=== PATIENT | female | born 1965 | race Caucasian/White ===

== ENCOUNTER 2018-04-09 10:04 | Outpatient (CLI) | payer OTHER, SELFPAY ==
[2018-04-09 13:31] LABS: TSH (W/Ref FT4) 2.01 uIU/mL (0.358-3.74)
[2018-04-12 10:04] LABS: FSH 23.9 mIU/ml
== END 2018-04-09 10:24 ==
PROVIDERS: PCP Family Medicine; Visit Provider Nurse Practitioner Women's Health
DX: R61 Generalized hyperhidrosis (principal); E04.9 Nontoxic goiter, unspecified
CPT/HCPCS: 36415; 83001; 84443

== ENCOUNTER 2019-11-23 09:48 | Outpatient (REF) | payer OTHER, SELFPAY ==
--- NOTE | 2019-11-23 09:15 | PAPFT_PTH ---
PATIENT: Rosa Maria Toussaint LOC: [facility] U#:[id number] AGE/SX: 54/F ROOM: RE11/23/[address]: Keyla Meyers NP : 1965 BED: DIS: 11/23/2019 SPEC #: [id number] RECD: 11/23/19 12:57 STATUS: GAL DEGROOT #: [id number] XIOMARA: 11/23/19 09:[address]: Keyla Meyers NP DEPT: [facility] Cytology RECD BY: Parvin Castrejon ENTERED: 11/23/19 12:58 SP TYPE: PAPFT OTHR DR: Cierra Esquivel Tissues: 1 - CX/ENDOCX FOR PAP SMEARS Procedures: PAP THIN PREP/UVM Screening HPV DNA PROBE Comments: [id number]
== END 2019-11-23 10:08 ==
LOC: LBN 09:48
PROVIDERS: PCP Family Medicine; Visit Provider Nurse Practitioner Women's Health
DX: Z11.51 Encounter for screening for human papillomavirus (HPV) (principal)
CPT/HCPCS: 88142; 87624

== ENCOUNTER 2019-12-27 00:56 | Outpatient (CLI) | payer OTHER, SELFPAY ==
--- NOTE | 2019-12-27 07:45 | DI.US_ITS ---
EXAM: US PELVIS TRANSVAGINAL CLINICAL HISTORY: IUD surveillence, no strings on exam, Z30.431. TECHNIQUE: Transabdominal and transvaginal pelvic ultrasound was performed using standard protocol. COMPARISON: US PELVIS TRANSVAG from 08/23/2013 FINDINGS: KIDNEYS: Kidneys are symmetric in size. No evidence of renal calculi. No evidence of hydronephrosis. No renal mass or cyst identified. UTERUS: Position: Anteverted. Size: 10.9 long by 5.1 AP by 5.0 transverse cm Endometrium: 0.2 cm. Normal for patient's menstrual status. There is an IUD in good position. Myometrium: There is a 4.1 x 3.3 x 4.6 cm hypoechoic mass arising from the posterior body of the uter us suspicious for a fibroid. Cervix: Unremarkable. OVARIES: Right: 2.2 x 1.3 x 1.2 cm Cyst or mass: None. Left: 2.6 x 1.4 x 1.5 cm Cyst or mass: None. CUL-DE-SAC: Free fluid: None. Other: None. IMPRESSION: 1. Normal sonographic appearance of the kidneys. 2. 4.6 cm hypoechoic mass arising from the posterior uterus suspicious for fibroids. 3. IUD in good position. 4. Unremarkable bilateral ovaries. DATA REPOSITORY:
== END 2019-12-27 01:16 ==
PROVIDERS: PCP Family Medicine; Visit Provider Nurse Practitioner Women's Health
DX: Z30.431 Encounter for routine checking of intrauterine contraceptive device (principal)
CPT/HCPCS: 76830; 76856

== ENCOUNTER 2020-01-20 02:32 | Outpatient (CLI) | payer OTHER, SELFPAY ==
[2020-01-20 10:40] LABS: HCT 45.6 % (36.0-46.0); HGB 14.5 g/dL (11.2-15.7); MCH 27.9 pg (27.0-33.0); MCHC 31.8 % (32.0-36.0); MCV 87.9 fL (80-95); MPV 10.7 fL (8.0-11.0); Platelet Count 256 10^3/uL (130-400); RBC 5.19 10^6/uL (3.93-5.22); RDW 13.6 % (11.7-14.6); RDW-SD 43.9 fL; WBC 8.38 10^3/uL (4.4-10.8)
[2020-01-20 11:17] LABS: HCG Qual (Urine) Negative
== END 2020-01-20 02:52 ==
PROVIDERS: PCP Family Medicine; Visit Provider Obstetrics & Gynecology
DX: Z30.432 Encounter for removal of intrauterine contraceptive device (principal); D25.9 Leiomyoma of uterus, unspecified; Z01.818 Encounter for other preprocedural examination; Z01.812 Encounter for preprocedural laboratory examination
CPT/HCPCS: 36415; 85027; 86850; 86900; 86901; 81025

== ENCOUNTER 2020-01-20 08:02 | Outpatient (CLI) | payer OTHER, SELFPAY ==
[2020-01-22 02:51] LABS: COVID-19 RT-PCR Result NEGATIVE (Negative)
== END 2020-01-20 08:22 ==
PROVIDERS: PCP Family Medicine; Visit Provider Obstetrics & Gynecology
DX: Z01.818 Encounter for other preprocedural examination (principal)
CPT/HCPCS: U0003

== ENCOUNTER 2020-01-25 07:50 | Day surgery (SDC) | payer OTHER, SELFPAY ==
[2020-01-25 08:13] VITALS: BP 128/83; PULSE 63; RESP 16; TEMP 36.9; O2SAT 99
[2020-01-25] MEDS: Lactated Ringers 1,000 ML 125 ML IV (09:36)
--- NOTE | 2020-01-25 09:59 | W.PM.OP ---
Date of service: 01/25/20 Time of Service: 09:59 Operative Note Operative Note DATE OF PROCEDURE: 01/25/20 PRE-OP DIAGNOSIS: Retained intrauterine device POST-OP DIAGNOSIS: same PROCEDURE: Hysteroscopy with removal of intrauterine device SURGEON: Marika Marin ANESTHESIA: MAC ESTIMATED BLOOD LOSS: 5 Patient was transported to: PACU Patient's condition: stable Indications: Retained intrauterine device Findings: Intrauterine device removed Procedure Description: Patient is a 54-year-old female with need for removal of Mirena intrauterine device. This was attempted in the office, however strings and device itself were not able to be visualized well removed. The risks, benefits, alternatives of hysteroscopy with removal of intrauterine device were explained to the patient in full informed consent was obtained. She was taken the operating suite with an IV running. She was placed in the dorsal supine position and anesthesia administered. She was then placed in the modified dorsal lithotomy position in yellowfin stirrups and prepped and draped in usual sterile fashion. Exam under anesthesia revealed a uterus that was midline and mobile. Weighted speculum placed in the posterior vaginal vault. Anterior lip of the cervix was grasped with a single-tooth tenaculum. Cervical loss dilated to the point that a 5 mm hysteroscope could be passed. Visualization of the endometrial cavity revealed intrauterine device present with strings folded into the superior direction. Remainder of the cavity appeared normal. Hysteroscope was removed. Packing forcep used to grasp the distal portion of the device and removed with ease. Single-tooth tenaculum and speculum removed. Cervix is hemostatic. Patient was returned dorsal supine position and woke from anesthesia with ease. She was taken recovery room in stable condition. Complications are none apparent.
[2020-01-25 10:42] VITALS: BP 118/74; PULSE 58; RESP 16; TEMP 36.5; O2SAT 97
== END 2020-01-25 11:14 | disposition home or self-care (01) ==
PROVIDERS: PCP Family Medicine; Visit Provider Obstetrics & Gynecology
PROC: 0UJD8ZZ Inspection of Uterus and Cervix, Via Natural or Artificial Opening Endoscopic (ICD-10-PCS; CPT 58555; principal; 2020-01-25 09:00)
PROC: (CPT 58562; 2020-01-25 09:00)
DX: Z30.432 Encounter for removal of intrauterine contraceptive device (principal)
CPT/HCPCS: 58562; J1100; J1885; J2405

== ENCOUNTER → 2022-03-11 03:03 | Outpatient (CLI) | payer OTHER, SELFPAY ==
--- NOTE | 2022-03-11 06:45 | DI.US_ITS ---
Exam(s) US PELVIS TRANSVAGINAL EXAM: US PELVIS TRANSVAGINAL CLINICAL HISTORY: f/u uterine fibroid, d25.9 TECHNIQUE: Ultrasound of the pelvis was performed both transabdominal and transvaginal. COMPARISON: US US PELVIS TRANSVAGINAL from 02/19/2021 FINDINGS: UTERUS: Anteverted Measures 7.6 cm length x 3.2 cm AP x 3.8 cm wide. Posterior fibroid again noted measuring 4.5 x 4.3 cm, similar to previous. No new additional uterine fibroids evident. Endometrial thickness measures 3 mm. There is no fluid in the endometrial canal. CERVIX: There are no obvious nabothian cysts. RIGHT OVARY: Measures 2.6 x 1.6 x 1.1 cm No significant cysts nor masses evident in the right ovary. LEFT OVARY: Not seen CUL-DE-SAC: No free fluid evident. IMPRESSION: 1. Stable size single posterior uterine fibroid. No other significant uterine findings. 2. Unremarkable right ovary. 3. Left ovary again not seen. DATA REPOSITORY:
--- NOTE | 2022-03-11 08:08 | DI.MAMMO_ITS ---
Exam(s) MAMMO SCREENING EXAM: MAMMO SCREENING CLINICAL HISTORY: screening,z12.39. TECHNIQUE: Bilateral full field digital CC and MLO mammographic images were obtained with 3D tomosyn thesis and utilizing computer aided detection (CAD). COMPARISON: Prior mammograms were reviewed. Most recent was 2015. FINDINGS: There has been no significant change in the appearance and distribution of the fibroglandular tissue. There are no new spiculated masses nor malignant appearing microcalcification groups. There is no significant architectural distortion nor skin thickening-retraction. IMPRESSION: No radiographic evidence of malignancy. BI-RADS Category 1 - Negative Breast Density - Category B - Scattered areas of fibroglandular density Breast density Category C or D implies that the patient has dense breast tissue. Dense breast tissue can make it harder to find cancer on a mammogram. Dense breast tissue is also associated with an incr eased risk of breast cancer. This information about the result of the mammogram report was provided to the patient to raise their awareness. Use this report when you speak with the patient about their risks for breast cancer, which includes their family history. At that time, you may recommend additional screening tests (Ultrasoun d or MRI) as these tests may add significant information. A negative radiographic report should not delay biopsy if a dominant or clinically suspicious mass is present. Up to ten percent of cancers are not identified on mammography. A negative report may reinforce clinical impression. Adenosis and dense breasts may obscure an underlying neoplasm. False positive reports average 6 to 10%. Patient will receive a letter notifying them of these results.
== END ==
PROVIDERS: PCP Family Medicine; Visit Provider Obstetrics & Gynecology
DX: D25.9 Leiomyoma of uterus, unspecified (principal); Z12.31 Encounter for screening mammogram for malignant neoplasm of breast
CPT/HCPCS: 77063; 77067; 76830; 76856

== ENCOUNTER 2023-09-07 11:56 | Outpatient (REF) | payer OTHER, SELFPAY ==
--- NOTE | 2023-09-07 10:20 | PAPFT_PTH ---
PATIENT: Rosa Maria Toussaint LOC: [facility] U#:[id number] AGE/SX: 58/F ROOM: RE09/07/[address]: Marika Marin DO : 1965 BED: DIS: 09/07/2023 SPEC #: [id number] RECD: 09/07/23 13:13 STATUS: GAL REQ #: [id number] XIOMARA: 09/07/23 10:[address]: Marika Marin DEPT: [facility] Cytology RECD BY: Parvin Castrejon ENTERED: 09/07/23 13:13 SP TYPE: PAPFT OTHR DR: Cierra Esquivel Tissues: 1 - CX/ENDOCX FOR PAP SMEARS Procedures: PAP THIN PREP/UVM Screening HPV DNA PROBE Comments: [id number]
== END 2023-09-07 11:57 | disposition home or self-care (01) ==
LOC: LBN 11:56
PROVIDERS: PCP Family Medicine; Visit Provider Obstetrics & Gynecology
DX: Z12.4 Encounter for screening for malignant neoplasm of cervix (principal)
CPT/HCPCS: 88142; 87624